=== PATIENT | male | born 1960 | race African-American/Black ===

== ENCOUNTER 2018-01-01 16:54 | Emergency (ER) | payer OTHER ==
[~2018-01-01] VITALS: Ht 180.3 cm; Wt 72.5 kg
[2018-01-01 18:03] VITALS: BP 151/89
== END 2018-01-01 19:11 | disposition home or self-care (01) ==
LOC: EMS 16:58
DX: H61.23 Impacted cerumen, bilateral (principal); R03.0 Elevated blood-pressure reading, without diagnosis of hypertension; F17.210 Nicotine dependence, cigarettes, uncomplicated
CPT/HCPCS: 69209; 99283

== ENCOUNTER 2019-09-02 10:33 | Emergency (ER) | payer OTHER ==
[~2019-09-02] VITALS: Ht 180.3 cm; Wt 71.8 kg
[2019-09-02 10:45] VITALS: BP 128/92
== END 2019-09-02 11:42 | disposition left against medical advice (07) ==
LOC: EMS 10:34
DX: M79.671 Pain in right foot (principal); Z53.21 Procedure and treatment not carried out due to patient leaving prior to being seen by health care provider

== ENCOUNTER 2020-08-08 11:30 | Emergency (ER) | payer OTHER ==
[~2020-08-08] VITALS: Ht 177.8 cm; Wt 76.8 kg
[2020-08-08 11:41] VITALS: BP 145/86
[2020-08-08] MEDS ORDERED: PERTUSS(ACELL),DIPH,TET VAC/PF 0.5 ML VIAL IM ONE (13:45)
== END 2020-08-08 14:45 | disposition home or self-care (01) ==
LOC: EMS 11:30
DX: S61.012A Laceration without foreign body of left thumb without damage to nail, initial encounter (principal); F17.210 Nicotine dependence, cigarettes, uncomplicated; W25.XXXA Contact with sharp glass, initial encounter; Y93.89 Activity, other specified; Y92.89 Other specified places as the place of occurrence of the external cause; Y99.8 Other external cause status
CPT/HCPCS: 90471; 90715